=== PATIENT | male | born 1970 | race Caucasian/White ===

== ENCOUNTER 2020-03-28 13:55 | Emergency (ER) | payer BC ==
[~2020-03-28] VITALS: Ht 177.8 cm; Wt 86.2 kg
[2020-03-28 14:21] VITALS: BP 137/92
[2020-03-28] MEDS ORDERED: cefTRIAXone SOD 1,000 MG VL IM ONE (16:00)
== END 2020-03-28 17:13 | disposition home or self-care (01) ==
LOC: ER 13:55
DX: U07.1 COVID-19 (principal); J12.82 Pneumonia due to coronavirus disease 2019; F17.210 Nicotine dependence, cigarettes, uncomplicated
CPT/HCPCS: 71045; 96372; 99283; J0696